=== PATIENT | female | born 1995 | race Hispanic/Latino ===

== ENCOUNTER 2023-09-30 13:52 | Emergency (ER) | payer SELFPAY ==
[2023-09-30 13:53] VITALS: BP 145/96; PULSE 101; RESP 16; TEMP 37.2; O2SAT 99
--- NOTE | 2023-09-30 14:46 | EDS_ITS ---
HPI History of Present Illness Chief Complaint: Shortness of Breath Detail of Chief Complaint: Shortness of breath, upper respiratory tract infectious symptoms Informant: patient Limited: language barrier (Medical Officer service was used. Jake Doshi) Onset/Context/Timing Onset: Days (3 days ago) Context: sudden Timing: Continuous and Waxes and wanes Quality: Negative for Dyspnea on exertion, Orthopnea, PND or Wheezing Current Severity: Mild Maximum Severity: Mild Worsened by: Nothing Relieved by: Nothing Associated Symptoms cough, rhinorrhea and sore throat; Negative for post nasal drip, ear pain, fever, subjective, chills, sweats, clear sputum, white sputum or yellow sputum Chest Pain: Positive for None Narrative Narrative: Patient is a 27-year-old woman who presents with upper respiratory tract infectious symptoms. She does complain of pain in her forehead. Nothing makes the pain better or worse. Described as pain. She does have congestion, sore throat cough that is nonproductive. She also complains of myalgias arthralgias. There is no history of PE or DVT. She is on no control pills. She denies leg pain, swelling discoloration. She denies abdominal pain, nausea, vomit or diarrhea. PE Risk Factors: Negative for Cancer, OCP + Smoking + > 35, Prior DVT or PE, Recent immobilization, Recent surgery or Recent travel Prior similar symptoms: Yes Recent Illness/Hospitalization: No PFSH PFSH no medical history Allergy/AdvReac Type Severity Reaction Status Date / Time No Known Allergies Allergy Verified 09/30/23 13:56 no significant family history no surgical history Social History (Updated 09/30/23 @ 14:[address] Barrie August MD) Smoking Status: Never smoker ROS ROS ED Constitutional Constitutional ED: Denies chills, fever(s), sweats or weight loss Eyes Eyes: Denies blurry vision, change in vision or diplopia ENT ENT ED: Reports rhinorrhea and sore throat; Denies ear pain Cardiovascular Cardiovascular: Denies chest pain, orthopnea, palpitations, paroxysmal nocturnal dyspnea or racing heartbeat Respiratory/Chest Respiratory/Chest: Reports cough and dyspnea; Denies dyspnea on exertion, orthopnea, paroxysmal nocturnal dyspnea or sputum Gastrointestinal Gastrointestinal: Denies abdominal pain, constipation, diarrhea, melena, nausea or vomiting Genitourinary Genitourinary ED: Denies dysuria, hematuria or urinary frequency Musculoskeletal Musculoskeletal: Denies arthralgias, back pain, myalgias or neck pain Integumentary Denies rash Neurologic Neurologic: Reports headache(s); Denies paresthesias or weakness Endocrine Endocrinology: Denies cold intolerance or heat intolerance Hematologic/Lymphatic Hematologic/Lymphatic: Denies easy bleeding or easy bruising EXAM Physical Exam Const Vital Signs: 09/30/23 13:53 Temperature 99 F Temperature Source Temporal Pulse Rate 101 H Respiratory Rate 16 Blood Pressure 145/96 H Blood Pressure Mean 112 Pulse Ox 99 Oxygen Delivery Method Room Air Positive well nourished and well developed General Appearance ED: well developed and NAD; Negative for pallor HEENT Reports moist mucous membranes HEENT Narrative: Ears normal. External auditory canal normal. TMs normal. Nares slight clear drainage. Nasal mucosa is boggy and seo consistent with allergies. Posteropharynx out erythema or exudate. Uvula is midline. There is no deviation with protrusion. atraumatic Eyes PERRL and EOMs intact bilaterally General Eye ED: Negative for pale conjunctiva or scleral icterus Neck no lymphadenopathy, supple, no meningeal signs and no JVD Resp normal respiratory effort and clear to auscultation bilaterally Cardio regular rate, regular rhythm, S1 normal heart sound, S2 normal heart sound and no murmurs GI non-tender, non-distended and no masses Auscultation: normoactive bowel sounds Palpation: soft Back/Spine no CVA tenderness Extremity normal to inspection General Extremety ED: Negative for edema or tenderness General Extremity: Negative for edema Neuro oriented x3 and CN's II-XII intact bilaterally Sensorium / Orientation: alert Psych mental status grossly normal Skin no wounds and skin turgor normal General Skin Exam: Negative for jaundice or pallor Lesions: no lesions Rashes: no rashes MDM MDM MDM Narrative Medical decision making narrative: Patient presents with upper respiratory like symptoms. Patient's history and physical not consistent with PE, cardiac disease. Will treat symptomatically since her symptoms started only 3 days ago. Her vitals reveal slight elevated blood pressure and slight tachycardia. She is not tachypneic febrile or hypoxic. In my professional opinion x-rays not indicated since she has no abnormal aspiratory findings which include rales, rhonchi, wheezing, egophony etc. History & Record Review Additional record(s) reviewed:: No prior records Discharge Plan Triage Chief Complaint: Shortness of Breath ED Provider: Barrie August Dx/Rx/DC Orders Clinical Impression: Acute upper respiratory infection, Tachycardia Instructions: ED Bronchitis, No Antibiotic (Adult) Referrals: Clara Thomas [Non-Staff] - 10-14 Days if not better Print Language: Swazi Disposition Disposition: Home, Self Care
[2023-09-30 15:12] VITALS: BP 145/96; PULSE 81; RESP 14; TEMP 37.2; O2SAT 100; O2SAT 99
== END 2023-09-30 15:14 | disposition home or self-care (01) ==
PROVIDERS: Emergency Provider Emergency Medicine; Visit Provider Emergency Medicine
DX: J06.9 Acute upper respiratory infection, unspecified (principal); R00.0 Tachycardia, unspecified
CPT/HCPCS: 99282

== ENCOUNTER 2023-11-16 09:02 | Emergency (ER) | payer SELFPAY ==
[2023-11-16 09:03] VITALS: BP 134/83; PULSE 100; RESP 14; TEMP 36.1; O2SAT 99
[2023-11-16 09:06] VITALS: BMI 33.7
[2023-11-16] MEDS: HYDROcodone Bitartrate/Apap 5/325 Tablet PO (09:40)
--- NOTE | 2023-11-16 09:40 | EDS_ITS ---
HPI History of Present Illness Chief Complaint: Back Detail of Chief Complaint: Right lower back pain getting up out of bed Informant: patient and other (Friend who is with her was uses interpreter and translator.) Onset/Context/Timing Onset: Today Context: Sudden Onset Chronic pain exacerbated by: Any type of movement Injury: other (Getting out of bed and felt the tightness) Timing: Continuous and Waxes and wanes Quality: Dull and Aching Location: Lumbar (Right side) Current Severity: Mild Maximum Severity: Severe Worsened by: improves with Movement, Ambulation, Bending and Lifting Relieved by: Nothing Associated Symptoms Associated Symptoms: Radiation to Right Leg; Negative for Numbness, Tingling, Radiation to Left Leg, Fever, Abdominal Pain, Dysuria, Unable to Ambulate, Unable to Transfer, Urinary Retention, Urinary Incontinence, Constipation or Fecal Incontinence Narrative Narrative: Patient is a 27-year-old Ab0 female who is approximate 4 weeks gestation. She has no local physician or local OB. She has had no OB care. She presents for back pain however she also noted some vaginal bleeding. She does not know her blood type. She denies any pelvic PHYSIOTHERAPY ASSISTANT symptoms. Patient was brought to examination bed by wheelchair. She was able to stand up. She grimaces with movement. She denies bowel bladder dysfunction. She denies foot drop. She does have pain posterior right leg to the popliteal fossa. She denies history of any direct trauma. She is not complaining of any cramping pelvic or abdominal pain. Prior similar symptoms: No Recent Illness/Hospitalization: No PFSH PFSH Medical History (Updated 11/16/23 @ 10:[address] Barrie August MD) Depression Medical History no medical history no medical history Home Medications ?Medication ?Instructions ?Recorded ?Last Taken ?Type hydrocodone-acetaminophen 5-325mg 1 tab PO Q6H PRN PRN Pain 3 days 11/16/23 Unknown Rx 5mg-325mg #10 TABLETS Allergy/AdvReac Type Severity Reaction Status Date / Time No Known Allergies Allergy Verified 11/16/23 09:12 Surgical History no surgical history no surgical history Social History household members: family Smoking Status: Never smoker ROS ROS ED Constitutional Constitutional ED: Denies chills, fever(s), subjective or sweats Gastrointestinal Gastrointestinal: Denies abdominal pain, constipation, nausea or vomiting Genitourinary Genitourinary ED: Reports urinary frequency; Denies dysuria or hematuria Musculoskeletal Musculoskeletal: Reports back pain; Denies arthralgias, myalgias or neck pain Integumentary Denies rash Neurologic Neurologic: Denies paresthesias or weakness Hematologic/Lymphatic Hematologic/Lymphatic: Denies easy bleeding or easy bruising EXAM Physical Exam Const Vital Signs: 11/16/23 09:03 Temperature 97 F L Temperature Source Temporal Pulse Rate 100 Respiratory Rate 14 Blood Pressure 134/83 H Blood Pressure Mean 100 Pulse Ox 99 Oxygen Delivery Method Room Air Positive well nourished and well developed General Appearance ED: well developed; Negative for NAD or pallor HEENT Reports moist mucous membranes HEENT Narrative: SH macrocephalic. Ears normal. Nares patent. Mucosa is moist. Eyes PERRL and EOMs intact bilaterally General Eye ED: Negative for pale conjunctiva or scleral icterus Neck no lymphadenopathy, supple and no JVD Resp normal respiratory effort and clear to auscultation bilaterally Cardio regular rate, regular rhythm, S1 normal heart sound, S2 normal heart sound and no murmurs GI normal to inspection, nondistended, normoactive bowel sounds, soft to palpation, non-tender, non-distended and no masses Back/Spine normal to inspection; Negative for no thoracic nor lumbar tenderness Back/Spine Narrative: Pain right Lumbar region. Straight leg test is negative bilateral. Patient had pain at 5 to 10 degrees on the right side. Negative bowstring sign. EHL intact bilaterally. Normal sensation L3-S1 dermatome. Patellar and ankle reflex are 2+. There is no Babinski sign nor is or any clonus. DP and PT pulse are palpable. Patient has reproducible pain right paralumbar region. Extremity normal to inspection and no clubbing, cyanosis or edema Neuro oriented x3 and no sensory deficits noted Sensorium / Orientation: alert Motor Exam: strength 5/5 throughout Deep Tendon Reflexes: Rt Patellar (L4): 2+, Lt Patellar (L4): 2+, Rt Ankle (S1): 2+ and Lt Ankle (S1): 2+ Deep Tendon Reflexes Back: Rt Patellar (L4): 2+, Lt Patellar (L4): 2+, Rt Ankle (S1): 2+ and Lt Ankle (S1): 2+ Plantar Reflex: Downgoing: bilateral Psych mental status grossly normal Skin no rashes or lesions noted and no wounds General Skin Exam: Negative for jaundice or pallor MDM MDM MDM Narrative Medical decision making narrative: Patient's back pain is consistent with muscular strain/spasm. She received [place] in the emergency department. Because she is with spotting and does not know her blood type ABO Rh was obtained. Will also make referral to OB on-call. Lab Data Attestation: I reviewed the patient's lab results. Labs: Laboratory Results - last 24 hr 11/16/23 09:32 Blood Type AB POSITIVE Treatment and Re-Evaluation Narrative: Patient was discharged with prescription for [place]. [facility]. NSAIDs are contraindicated since she is . And she was referred to Dr. Spears for OB since she has no OB in the area and has had no OB care. Dr. Spears was not contacted since patient does not need emergent/urgent follow-up Discharge Plan Triage Chief Complaint: Back ED Provider: Barrie August Dx/Rx/DC Orders Clinical Impression: Acute lumbar myofascial strain, First trimester , Miscarriage, threatened, early , Elevated blood-pressure reading, without diagnosis of hypertension Instructions: ED Back Sprain/Strain, ED Abdominal Pain, Early Prescriptions: New hydrocodone-acetaminophen 5-325 mg tablet 1 tab PO Q6H PRN PRN (Reason: Pain) 3 Days Qty: 10 0RF Primary Care Provider: Care Physician,No Primary Referrals: Paulette Van MD [Med Staff - Active Staff] - 1-2 Weeks Clara Thomas [Non-Staff] - 1-2 Weeks Care Physician,No Primary [Primary Care Provider] - Activity Restrictions/Additional Instructions: 1. Apply ice to low back 6-10 times a day 2. Take pain medicine as prescribed 3. Return if you are unable to urinate, loss of bowel control or weakness in your lower extremity Print Language: Bahamian Creole Disposition Disposition: Home, Self Care
[2023-11-16 10:39] VITALS: BP 144/84; PULSE 80; RESP 16; TEMP 36.5; O2SAT 99
== END 2023-11-16 10:44 | disposition home or self-care (01) ==
PROVIDERS: Emergency Provider Emergency Medicine; Visit Provider Emergency Medicine
DX: O9A.211 Injury, poisoning and certain other consequences of external causes complicating pregnancy, first trimester (principal); M79.604 Pain in right leg; R03.0 Elevated blood-pressure reading, without diagnosis of hypertension; S39.012A Strain of muscle, fascia and tendon of lower back, initial encounter; O20.0 Threatened abortion; G89.29 Other chronic pain; R10.31 Right lower quadrant pain; Z3A.01 Less than 8 weeks gestation of pregnancy; O99.891 Other specified diseases and conditions complicating pregnancy; R35.0 Frequency of micturition; X58.XXXA Exposure to other specified factors, initial encounter; O99.351 Diseases of the nervous system complicating pregnancy, first trimester
CPT/HCPCS: 86900; 86901; 99282

== ENCOUNTER 2023-12-21 20:48 | Emergency (ER) | payer MEDICAID, SELFPAY ==
[2023-12-21 20:48] VITALS: BP 126/79; PULSE 93; RESP 18; TEMP 36.2; O2SAT 98; BMI 33.5
--- NOTE | 2023-12-21 20:58 | ED.VIS.FEGU ---
HPI <Dr. Abiodun Hammer DO - Last Filed: 12/21/23 23:53> HPI - Female History of Present Illness Chief Complaint: Vag Bld, Preg <CHIRSS Mathias - Last Filed: 12/21/23 21:47> HPI - Female Narrative Narrative: Patient is a 27-year-old female, she is from [facility], she states minimal Congolese however her boyfriend speaks Congolese. Per the boyfriend, the patient is anywhere between 8 to 10 weeks , she does see Josey [employer], and has a appointment on 24 December. 2 hours prior to arrival, patient had significant lower abdominal cramping with some vaginal bleeding. This concerned the patient and she is here for evaluation. Patient is a 2 para 3. She does have 2 live births. PFSH <Dr. Abiodun Hammer DO - Last Filed: 12/21/23 23:53> [facility] Medical History Depression Home Medications ?Medication ?Instructions ?Recorded ?Last Taken ?Type hydrocodone-acetaminophen 5-325mg 1 tab PO Q6H PRN PRN Pain 3 days 11/16/23 Unknown Rx 5mg-325mg #10 TABLETS Allergy/AdvReac Type Severity Reaction Status Date / Time No Known Allergies Allergy Verified 12/21/23 20:49 Social History household members: family Smoking Status: Never smoker ROS <CHRISS Mathias - Last Filed: 12/21/23 21:47> ROS ED ROS Narrative Constitutional: Negative for fever, chills, weight loss, weakness Eyes: Negative for vision loss, vision change, double vision ENT: Negative for any sore throat, ear pain, congestion Cardiovascular: Negative for any chest pain, tightness, palpitations Respiratory: Negative for any cough, sputum production, hemoptysis, dyspnea, dyspnea on exertion, orthopnea Gastrointestinal: Negative for any nausea, vomiting, diarrhea, constipation, blood in stool, blood in vomit. Positive for abdominal pain : Negative for any urinary frequency, dysuria, retention, blood in urine. Positive for vaginal bleeding Muscle skeletal: Negative for any neck pain, back pain Neurological: Negative for any headache, syncope, dizziness Skin: Negative for any rashes, itching, abrasions, lacerations Psychiatric: Negative for any depression, anxiety, stress, suicidal ideation, homicidal ideation Hematologic: Negative for any excessive bruising, easy bleeding EXAM <Dr. Abiodun Hammer, DO - Last Filed: 12/21/23 23:53> Physical Exam Const Vital Signs: 12/21/23 20:48 12/21/23 22:48 Temperature 97.1 F L Temperature Source Temporal Pulse Rate 93 Respiratory Rate 18 18 Blood Pressure 126/79 H Blood Pressure Mean 94 Pulse Ox 98 Oxygen Delivery Method Room Air Room Air <Polo Michele CAMPAIGN MARKETING SPECIALISTRobertC - Last Filed: 12/21/23 21:47> Physical Exam Narrative Exam Narrative: Vital signs reviewed. HEET: Head normocephalic atraumatic, TMs clear bilaterally. Posterior pharynx is clear, moist mucous membranes. Nares clear bilaterally. Neck: Supple with no lymphadenopathy or tenderness. No signs of meningismus. Cardiac: Regular rate and rhythm no murmurs gallops or rubs, equal peripheral pulses bilaterally. Respiratory: Lungs clear to auscultation bilaterally. No chest tenderness. Abdomen: Soft, nontender, nondistended. No abdominal bruit or pulsatile masses. No hepatosplenomegaly Extremities: No peripheral edema, no signs of gross trauma or deformity. Active full range of motion of all extremities. Neuro: Cranial nerves II through XII intact, no focal neurological deficits. Skin: Clean dry and intact with no rash, purpura, petechiae, vesicles or pustules. Backs/flank: No CVA tenderness, no midline spinal tenderness, no deformity. Psych: Normal mood and affect. No SI, HI or acute psychosis. Const Vital Signs: 12/21/23 20:48 12/21/23 22:48 Temperature 97.1 F L Temperature Source Temporal Pulse Rate 93 Respiratory Rate 18 18 Blood Pressure 126/79 H Blood Pressure Mean 94 Pulse Ox 98 Oxygen Delivery Method Room Air Room Air Positive well nourished and well developed General Appearance ED: well developed MDM <Dr. Abiodun Hammer, DO - Last Filed: 12/21/23 23:53> MDM Lab Data Labs: Laboratory Results - last 24 hr 12/21/23 12/21/23 21:14 22:27 WBC 8.7 RBC 3.82 L Hgb 11.3 L Hct 33.7 L MCV 88.2 MCH 29.6 MCHC 33.5 RDW Std Deviation 44.7 H RDW Coeff of Bakari 13.9 Plt Count 255 MPV 9.2 Immature Gran % (Auto) 0.500 Neut % (Auto) 67.1 Lymph % (Auto) 22.9 [place] % (Auto) 7.7 Eos % (Auto) 1.6 Baso % (Auto) 0.2 Absolute Neuts (auto) 5.9 Absolute Lymphs (auto) 2.00 Nucleated RBC % 0 HCG, Quant 74370 H Urine Color Yellow Urine Clarity Cloudy Urine pH 7.0 Ur Specific [place] 1.015 Urine Protein 15 H Urine Glucose (UA) 100 H Urine Ketones Negative Urine Occult Blood 25 H Urine Nitrite Negative Urine Bilirubin Negative Urine Urobilinogen Normal Ur Leukocyte Esterase 25 H Urine RBC 0-5 SEEN Urine WBC 0-5 SEEN Ur Squamous Epith Cells 0-5 SEEN Amorphous Sediment 2+ PHOS Urine Bacteria 0 SEEN Urine Mucus 0 SEEN Blood Type AB POSITIVE Radiography Diagnostic Testing: Clinical Impression(s) from Imaging Studies Obstetrics Ultrasound 12/21/23 21:02 IMPRESSION: Single live intrauterine . 12 weeks by CRL. Overall estimated gestational age 11 weeks 2 days. No convincing acute abnormality. Trace anechoic fluid in the cervix may be trace hemorrhage. Electronically Signed: Felisha Morton MD at 23:49 EDT , Treatment and Re-Evaluation Narrative: Differential diagnosis includes however is not limited to: Dysfunctional uterine bleeding, threatened miscarriage, ectopic , UTI Patient appears to be in no obvious distress, vital signs are stable, patient is nontoxic-appearing. Presenting to the emergency department for lower abdominal pain, vaginal bleeding, concerned because she is 8 to 10 weeks . Patient will receive a workup including a CBC BMP, hCG quantitative as well as blood type. Patient received a transvaginal ultrasound. All radiologic examinations were read, reviewed by the emergency department attending. From these reads, a plan of care will be put in place. Patient seems to be in a position of comfort at this time. Attending note: HISTORY OF PRESENT ILLNESS: 27-year-old female presents with lower abdominal cramping, vaginal bleeding. No she is approximate 8 weeks . She further states REVIEW OF SYSTEMS: Pertinent positives: Vaginal bleeding, abdominal cramping MEDICAL DECISION MAKING: Chief Complaint: Vaginal bleeding, abdominal cramping External records reviewed: Prior imaging reviewed: No recent advanced imaging of the pelvis noted Factors affecting care: none reported Social determinants of health: none History obtained from others: none Consults: none [facility] Narrative: The patient was hemodynamically stable, afebrile and nontoxic-appearing. I considered the following differential diagnosis: Miscarriage, ectopic , threatened miscarriage, We will obtain ultrasound, type and screen, CBC and quantitative hCG Patient was a positive no need for RhoGAM. She is not significantly anemic There is no sign of asymptomatic bacteriuria Ultrasound showed evidence of a live intrauterine approximately 1 weeks 2 days. The patient is likely some from threatened miscarriage. Will give close OB follow-up. No signs of heterotopic ectopic or completed miscarriage at this time. The patient and/or family, caregivers express understanding. The patient and/or family, caregivers agrees with the plan. Shared decision making: I will have a discussion with the patient and or visitors regarding risk/benefits of further testing or admission. They will be made aware of of the risk/benefits inherent in this decision they will be given the opportunity to voice understanding. Total critical care time today provided was at least 0 minutes. This excludes separately billable procedures. Critical care time (if documented) is secondary to the patient having high probability of clinically significant/life threatening deterioration in the patient's condition which required my urgent intervention. This note was generated with [employer] dictation software. It may contain incorrect words, spelling, and punctuation that were not noted in review of the chart prior to signing. <CHRISS Mathias - Last Filed: 12/21/23 21:47> [facility] Lab Data Labs: Laboratory Results - last 24 hr 12/21/23 12/21/23 21:14 22:27 WBC 8.7 RBC 3.82 L Hgb 11.3 L Hct 33.7 L MCV 88.2 MCH 29.6 MCHC 33.5 RDW Std Deviation 44.7 H RDW Coeff of Bakari 13.9 Plt Count 255 MPV 9.2 Immature Gran % (Auto) 0.500 Neut % (Auto) 67.1 Lymph % (Auto) 22.9 [place] % (Auto) 7.7 Eos % (Auto) 1.6 Baso % (Auto) 0.2 Absolute Neuts (auto) 5.9 Absolute Lymphs (auto) 2.00 Nucleated RBC % 0 HCG, Quant 50273 H Urine Color Yellow Urine Clarity Cloudy Urine pH 7.0 Ur Specific [place] 1.015 Urine Protein 15 H Urine Glucose (UA) 100 H Urine Ketones Negative Urine Occult Blood 25 H Urine Nitrite Negative Urine Bilirubin Negative Urine Urobilinogen Normal Ur Leukocyte Esterase 25 H Urine RBC 0-5 SEEN Urine WBC 0-5 SEEN Ur Squamous Epith Cells 0-5 SEEN Amorphous Sediment 2+ PHOS Urine Bacteria 0 SEEN Urine Mucus 0 SEEN Blood Type AB POSITIVE Radiography Diagnostic Testing: Clinical Impression(s) from Imaging Studies Obstetrics Ultrasound 12/21/23 21:02 IMPRESSION: Single live intrauterine . 12 weeks by CRL. Overall estimated gestational age 11 weeks 2 days. No convincing acute abnormality. Trace anechoic fluid in the cervix may be trace hemorrhage. Electronically Signed: Felisha Morton MD at 23:49 EDT , Treatment and Re-Evaluation Narrative: Differential diagnosis includes however is not limited to: Dysfunctional uterine bleeding, threatened miscarriage, ectopic , UTI Patient appears to be in no obvious distress, vital signs are stable, patient is nontoxic-appearing. Presenting to the emergency department for lower abdominal pain, vaginal bleeding, concerned because she is 8 to 10 weeks . Patient will receive a workup including a CBC BMP, hCG quantitative as well as blood type. Patient received a transvaginal ultrasound. All radiologic examinations were read, reviewed by the emergency department attending. From these reads, a plan of care will be put in place. Patient seems to be in a position of comfort at this time. Discharge Plan Triage Chief Complaint: Vag Bld, Preg ED Midlevel Provider: Polo Michele ED Provider: Abiodun Hammer Dx/Rx/DC Orders Prescriptions: No Action hydrocodone-acetaminophen 5-325 mg tablet 1 tab PO Q6H PRN PRN (Reason: Pain) 3 Days Qty: 10 0RF Primary Care Provider: Care Physician,No Primary Referrals: Care Physician,No Primary [Primary Care Provider] - Print Language: Jake Doshi
--- NOTE | 2023-12-21 21:02 | US_ITS ---
EXAM: US , TRANSVAGINAL CLINICAL INDICATION: bleeding/abdominal pain TECHNIQUE: Real-time transvaginal obstetrical ultrasound of the maternal pelvis and a first trimester with image documentation. Transvaginal imaging was used for better evaluation of the fetus and adnexa. COMPARISON: No relevant prior studies available. FINDINGS: UTERUS/CERVIX: Uterus is 13.2 cm x 9.6 cm x 7.2 cm. Trace anechoic fluid in the cervical canal. Intrauterine gestation sac and pole. Mean sac diameter 4.8 cm corresponds to 10 weeks 3 days gestation. 5.6 cm pole corresponds to 12 weeks 0 day gestation. heart rate 161 bpm. OVARIES: Neither is well seen. FREE FLUID: No free fluid. US/Transvaginal w/Preg US IMPRESSION: Single live intrauterine . 12 weeks by CRL. Overall estimated gestational age 11 weeks 2 days. No convincing acute abnormality. Trace anechoic fluid in the cervix may be trace hemorrhage. Electronically Signed: Felisha Morton MD at 23:49 EDT ,
[2023-12-21 21:25] LABS: Absolute Neutrophil Count 5.9 X10^3/uL (2.0-7.7); Basophil# 0.02 X10^3/uL; Basophil% 0.2 % (0-1); Eosinophil# 0.14 X10^3/uL; Eosinophils% 1.6 % (0-5); Hematocrit 33.7 % (37-47); Hemoglobin 11.3 g/dL (12.0-15.0); Lymphocyte % 22.9 % (19-41); Mean Corp Hgb Conc 33.5 g/dL (32-36); Mean Corpuscular Hgb 29.6 pg (27.0-32.0); Mean Corpuscular Volume 88.2 fL (81-99); Mean Platelet Vol. 9.2 fl (6.2-12.0); Monocyte# 0.67 X10^3/uL; Monocyte% 7.7 % (0-10); NRBC Flagged by Analyzer 0 % (0-5); Neutrophil # 5.86 X10^3/uL (2.7-7.7); Neutrophil % 67.1 % (47-70); Platelet Count 255 K/mm3 (150-450); RBC Distribution Width CV 13.9 % (11.6-14.6); RBC Distribution Width SD 44.7 fl (35.1-43.9); Red Blood Count 3.82 M/mm3 (4.2-5.4); White Blood Count 8.7 K/mm3 (4.4-11.0)
[2023-12-21 22:08] LABS: hCG Titer Quant., Serum 52977 mIU/mL (1-3)
[2023-12-21 22:33] LABS: Bacteria 0 SEEN /hpf (None Seen); Mucous, Urine 0 SEEN /hpf (<or=2+)
[2023-12-21 22:35] LABS: Color, Urine Yellow (Yellow); Glucose, Dipstick 100 mg/dl (Normal); Ketone-Dipstick Negative (Negative); Leukocyte Esterase-Dipstick 25 /ul (Negative); Nitrite-Dipstick Negative (Negative); Occult Blood-Urine 25 /ul (Negative); Protein-Dipstick 15 mg/dl (Negative); Specific Gravity, Urine 1.015 (1.002-1.030); Urine Bilirubin Dipstick Negative (Negative); Urine Clarity Cloudy (Clear); Urine Urobilinogen Normal (Normal)
[2023-12-21 22:48] VITALS: RESP 18
[2023-12-21 22:49] LABS: Amorphous Sediment 2+ PHOS; Red Blood Cells-Urine 0-5 SEEN /hpf (0-5); Squamous Epithelial Cells - UA 0-5 SEEN /hpf (5-10); White Blood Cells 0-5 SEEN /hpf (0-5)
[2023-12-22 00:03] VITALS: PULSE 90; RESP 18; TEMP 36.7; O2SAT 98
== END 2023-12-22 00:05 | disposition home or self-care (01) ==
PROVIDERS: Nurse Practitioner; Emergency Provider Emergency Medicine; Visit Provider Emergency Medicine
DX: O20.9 Hemorrhage in early pregnancy, unspecified (principal); Z3A.00 Weeks of gestation of pregnancy not specified
CPT/HCPCS: 76817; 81001; 84702; 85025; 86900; 86901; 99282; J7030; A4216

== ENCOUNTER 2024-01-15 09:38 | Emergency (ER) | payer MEDICAID, SELFPAY ==
[2024-01-15 09:40] VITALS: BP 132/75; PULSE 81; RESP 16; TEMP 37.1; O2SAT 99; BMI 34.1
--- NOTE | 2024-01-15 09:57 | ED.VIS.FALL ---
HPI HPI - Fall History of Present Illness Chief Complaint: Fall Informant: patient and EMS Limited: language barrier (Professional automobile mechanic apprentice service used for communication) Narrative Narrative: 28-year-old female states she is somewhere around 3 months was coming down the steps at home today and tripped and fell down maybe 6 steps. She injured her left waist and low back and having suprapubic abdominal discomfort. She states her last normal menstrual cycle was sometime in October she does not know specifically when. She denies any other injury and has been able to walk since falling. She has had no vaginal bleeding or leakage. No urinary symptoms. Hurts to move but she is able. No head injury, neck pain, nausea or vomiting. She has not felt the baby move since the fall but was feeling it before that. She is established with [facility] but has not seen anybody yet this . [facility] Medical History (Updated 01/15/24 @ 11:[address] Gregorio Ferguson MD) Depression Home Medications ?Medication ?Instructions ?Recorded ?Last Taken ?Type vit no.95-ferrous 1 tab PO DAILY 01/15/24 Unknown History fumarate 28 mg-folic acid 800 mcg tablet () Allergy/AdvReac Type Severity Reaction Status Date / Time No Known Allergies Allergy Verified 01/15/24 09:51 Social History household members: family Smoking Status: Never smoker ROS ROS ED Constitutional Constitutional ED: Denies chills or fever(s) Eyes Eyes: Denies change in vision or diplopia ENT ENT ED: Denies ear pain, epistaxis, facial pain or rhinorrhea Cardiovascular Cardiovascular: Denies chest pain or palpitations Respiratory/Chest Respiratory/Chest: Denies cough or dyspnea Gastrointestinal Gastrointestinal: Reports abdominal pain; Denies diarrhea, melena, nausea or vomiting Genitourinary Genitourinary ED: Denies dysuria or hematuria Musculoskeletal Musculoskeletal: Reports back pain; Denies extremity pain or neck pain Integumentary Denies abscess, Abrasions, laceration or rash Neurologic Neurologic: Denies confusion, headache(s), paresthesias or weakness EXAM Physical Exam Const Vital Signs: 01/15/24 09:40 01/15/24 09:40 01/15/24 11:39 Temperature 98.7 F Temperature Source Oral Pulse Rate 81 76 Respiratory Rate 16 16 Respiratory Effort Normal Non-Labored Respiratory Depth Normal Respiratory Pattern Normal Blood Pressure 132/75 H 134/55 H Blood Pressure Mean 94 81 Pulse Ox 99 98 Oxygen Delivery Method Room Air Room Air 01/15/24 11:46 Temperature 97.9 F Temperature Source Pulse Rate 76 Respiratory Rate 16 Respiratory Effort Respiratory Depth Respiratory Pattern Blood Pressure 134/55 H Blood Pressure Mean 81 Pulse Ox 98 Oxygen Delivery Method Positive well nourished and well developed General Appearance ED: well developed and NAD HEENT Reports nasal mucous membranes and turbinates normal HEENT Narrative: No Cyr sign no raccoon eyes no CSF otorhinorrhea atraumatic Face and Sinus: Negative for facial tenderness Eyes PERRL and EOMs intact bilaterally Visual Acuity: other Other Details: no entrapment or pain with extraocular movements Neck full ROM and supple General: Negative for tenderness Chest Wall inspection of chest normal and palpation of chest normal Chest: symmetrical chest wall rise; Negative for crepitus or tenderness Resp normal respiratory effort and clear to auscultation bilaterally Percussion: other equal BS bilat Cardio no murmurs Rate: regular rate Rhythm: regular rhythm GI normal to inspection, nondistended, normoactive bowel sounds, soft to palpation and non-tender GI Narrative: No reproducible abdominal tenderness/pain. There is some pain bilateral ASIS with applying AP compression at the pelvis, but no instability. Back/Spine normal ROM Back/Spine Narrative: Hurts to sit up but she is able. Cervical Spine: Negative for cervical spine tenderness Thoracic Spine / Upper Back: Negative for thoracic spinal tenderness Lumbar Spine / Lower Back: paraspinal muscle tenderness bilateral (Lumbar); Negative for lumbar spinal tenderness Extremity normal to inspection and full ROM Extremity Narrative: Including both hips, painless range of motion General Extremety ED: Negative for tenderness Neuro oriented x3, CN's II-XII intact bilaterally, moves all extremities, no focal motor deficits and no sensory deficits noted Antonia Coma Scale: document GCS findings Spontaneous Obeys Commands Oriented 15 Sensorium / Orientation: awake and alert Psych mental status grossly normal and thought process normal Skin no wounds Lesions: no lesions Rashes: no rashes MDM MDM MDM Narrative Medical decision making narrative: I did a bedside ultrasound. There is a single live intrauterine with good movement and heart tones are 144, biparietal distance measuring the baby at approximately 14 weeks and 6 days. Reassured the patient. We obtained an ABO/Rh and a urinalysis. There were some soft signs of infection, but without any urinary symptoms right now going to send for culture and hold off on any treatment given the reason that she was here was a fall and injury. With regards to her back and lower abdominal discomfort, I think she is at a very low likelihood of having a bony or organ injury. My suspicion is that she is just bruised, and I recommend avoiding radiography since any radiography of this area will involve ear radiating the baby. The patient is in agreement with this. I reviewed some old labs, it appears that her blood type was already measured and is AB+, so no RhoGAM indicated, and given that she is only 14-15 weeks along, she does not need to be transferred to the OB unit for observation. She does need to follow-up as an outpatient. Discussed all this with her and through the automobile mechanic apprentice, she is feeling better after Tylenol, and she has no questions and is fine with following up as an outpatient. History & Record Review Additional record(s) reviewed:: Prior labs (Blood type) Lab Data Attestation: I reviewed the patient's lab results. Labs: Laboratory Results - last 24 hr 01/15/24 10:40 Urine Color Yellow Urine Clarity Sl. Cloudy Urine pH 7.0 Ur Specific [place] 1.010 Urine Protein Negative Urine Glucose (UA) Normal Urine Ketones Negative Urine Occult Blood 50 H Urine Nitrite Negative Urine Bilirubin Negative Urine Urobilinogen Normal Ur Leukocyte Esterase 100 H Urine RBC 0 SEEN Urine WBC 5-10 SEEN Ur Squamous Epith Cells 0-5 SEEN Urine Bacteria 1+ Urine Mucus 0 SEEN Discharge Plan Triage Chief Complaint: Fall ED Provider: Gregorio Ferguson Dx/Rx/DC Orders Clinical Impression: with abdominal wall injury, antepartum, Contusion of lower back Instructions: ED Abd Injury Blunt Benign Prescriptions: No Action PNV cmb#95-ferrous fumarate-FA [] 28 mg iron- 800 mcg tablet 1 tab PO DAILY Primary Care Provider: Care Physician,No Primary Referrals: Paulette Van MD [Med Staff - Active Staff] - As soon as possible (call for appt) Print Language: [place]al[place] Creole Disposition Disposition: Home, Self Care
[2024-01-15 10:46] LABS: Mucous, Urine 0 SEEN /hpf (<or=2+); Red Blood Cells-Urine 0 SEEN /hpf (0-5)
[2024-01-15] MEDS: Acetaminophen 500 MG Tablet 1000 MG PO (10:58)
[2024-01-15 11:27] LABS: Color, Urine Yellow (Yellow); Glucose, Dipstick Normal (Normal); Ketone-Dipstick Negative (Negative); Leukocyte Esterase-Dipstick 100 /ul (Negative); Nitrite-Dipstick Negative (Negative); Occult Blood-Urine 50 /ul (Negative); Protein-Dipstick Negative (Negative); Urine Bilirubin Dipstick Negative (Negative); Urine Clarity Sl. Cloudy (Clear); Urine Urobilinogen Normal (Normal)
[2024-01-15 11:39] VITALS: BP 134/55; PULSE 76; RESP 16; O2SAT 98
[2024-01-15 11:45] LABS: Squamous Epithelial Cells - UA 0-5 SEEN /hpf (5-10); White Blood Cells 5-10 SEEN /hpf (0-5)
[2024-01-15 11:46] VITALS: BP 134/55; PULSE 76; RESP 16; TEMP 36.6; O2SAT 98
[2024-01-15 11:46] LABS: Bacteria 1+ /hpf (None Seen)
== END 2024-01-15 11:53 | disposition home or self-care (01) ==
PROVIDERS: Emergency Provider Emergency Medicine; Visit Provider Emergency Medicine
DX: O9A.212 Injury, poisoning and certain other consequences of external causes complicating pregnancy, second trimester (principal); S20.229A Contusion of unspecified back wall of thorax, initial encounter; S39.91XA Unspecified injury of abdomen, initial encounter; W19.XXXA Unspecified fall, initial encounter; Z3A.00 Weeks of gestation of pregnancy not specified
CPT/HCPCS: 81001; 87086; 87088; 99282

== ENCOUNTER 2024-06-11 10:30 | Outpatient (CLI) | payer MEDICAID, SELFPAY ==
[2024-06-11] VITALS (12 sets, daily range): BP systolic 115–135; BP diastolic 55–77; PULSE 85–203; RESP 14; TEMP 36.9; O2SAT 98–100; BMI 40.2
[2024-06-11] MEDS: Lactated Ringers 1,000 ML 999 ML IV (12:00)
[2024-06-11 12:05] LABS: Bedside Glucose 96 mg/dL (74-106)
[2024-06-11 12:25] LABS: Absolute Lymphocyte Count 1.32 X10^3/uL (0.83-4.51); Absolute Neutrophil Count 6.2 X10^3/uL (2.0-7.7); Basophil# 0.02 X10^3/uL; Basophil% 0.2 % (0-1); Eosinophil# 0.12 X10^3/uL; Eosinophils% 1.4 % (0-5); Hematocrit 27.7 % (37-47); Lymphocyte # 1.32 X10^3/ul (0.83-4.51); Lymphocyte % 15.4 % (19-41); Mean Corp Hgb Conc 32.5 g/dL (32-36); Mean Corpuscular Hgb 26.9 pg (27.0-32.0); Mean Corpuscular Volume 82.7 fL (81-99); Mean Platelet Vol. 9.4 fl (6.2-12.0); Monocyte# 0.82 X10^3/uL; Monocyte% 9.5 % (0-10); NRBC Flagged by Analyzer 0 % (0-5); Neutrophil # 6.21 X10^3/uL (2.7-7.7); Neutrophil % 72.3 % (47-70); Platelet Count 192 K/mm3 (150-450); RBC Distribution Width CV 15.9 % (11.6-14.6); RBC Distribution Width SD 47.9 fl (35.1-43.9); Red Blood Count 3.35 M/mm3 (4.2-5.4); White Blood Count 8.6 K/mm3 (4.4-11.0)
[2024-06-11 12:37] LABS: International Normalized Ratio 1.1; Prothrombin Time (Protime)PT. 14.3 SECONDS (11.7-14.9)
[2024-06-11 12:38] LABS: Partial Thromboplast Time 26.3 Seconds (24.1-36.2)
--- NOTE | 2024-06-11 14:24 | OB.TRI.HP_ITS ---
HPI - General General Date of Admission: 06/11/24 Date of Service: 06/11/24 Chief Complaint: Contractions HPI Narrative ANDREY MORENO, is a 28 F who presents from the office with painful contractions. Has been contractions since 06/07. No bleeding. No LOF. 1+ cm in office and very high station. VTX on US. Previous vaginal delivery x 2 at term. Frequent contractions that improved with IV fluids. Cervix on L&D 2 cm x 3. Pain also much better. US shows no evidence of abruption. Patient comfortable with discharge and close follow up Maternal Data Information Final MANAV: 07/07/24 Gestational age: 36+2 PFSH PFSH Medical History (Updated 06/11/24 @ 17:[address] Paulette Van MD) Depression Home Medications ?Medication ?Instructions ?Recorded ?Last Taken ?Type vit no.95-ferrous 1 tab PO DAILY 01/15/24 Unk nown History fumarate 28 mg-folic acid 800 mcg tablet () Held on 06/11/24. Instructions: refused Allergy/AdvReac Type Severity Reaction Status Date / Time No Known Allergies Allergy Verified 06/11/24 11:03 Social History household members: family Smoking Status: Never smoker History 3 Elective abortions Hx Para 2 Spontaneous abortions Hx # Term Pregnancies Ectopic pregnancies Hx # Pregnancies Multiple births # of living children NST FHR Rate Baby A Baseline: 145 Variability:: Minimal and Moderate Accelerations:: 15 x 15 Decelerations:: None NST Reactive:: Yes FHR Category:: Category I Uterine Activity:: q4 to irregular Assessment & Plan (1) 36 weeks gestation of : (2) contractions: PLAN: Plan Labor precautions reviewed Appointment to be scheduled for F/u
[2024-06-11 14:50] LABS: Fibrinogen 289 mg/dl (203-444)
--- NOTE | 2024-06-11 15:28 | US_ITS ---
PROCEDURE: OB LIMITED (NO BIOMETRICS) REASON FOR EXAM: Rule out abruption. COMPARISON: Transvaginal ultrasound dated 12/21/2023. FINDINGS Number: 1 Position: Cephalic. Placental Position: Posterior GRADE 2 Placental Abnormalities: None. ESTIMATED GESTATIONAL AGE: Baseline: 36 weeks 2 days. ESTIMATED DATE OF DELIVERY: Baseline: 07/07/2024. Cardiac Motion: 150 bpm (average) Amniotic fluid index: 14.8 cm. Maximum vertical pocket: 5.5 cm. US/OB Limited (No Biometrics) IMPRESSION: 1. NO EVIDENCE OF ABRUPTION. 2. POSTERIOR PLACENTA. 3. HEART RATE 150 BPM. Reading Location: [facility]
== END 2024-06-11 17:30 | disposition home or self-care (01) ==
LOC: WPOUT 10:40 → WP 10:40
PROVIDERS: Referring Provider Obstetrics & Gynecology; Visit Provider Obstetrics & Gynecology
DX: O47.03 False labor before 37 completed weeks of gestation, third trimester (principal); Z3A.36 36 weeks gestation of pregnancy
CPT/HCPCS: 96365; 59025; 59050; 76815; 82962; 85025; 85384; 85610; 85730; 86850; 86900; 86901; 99221; G0378

== ENCOUNTER 2024-07-05 12:13 | Observation (INO) | payer MEDICAID, SELFPAY ==
[2024-07-05] VITALS (173 sets, daily range): BP systolic 137–214; BP diastolic 81–113; PULSE 58–120; RESP 15–18; TEMP 36.4–37.3; O2SAT 74–100; BMI 30.3
[2024-07-05] MEDS: Lactated Ringers 1,000 ML 15 ML IV (13:20)
[2024-07-05 13:34] LABS: Hematocrit 33.9 % (37-47); Hemoglobin 10.6 g/dL (12.0-15.0); Mean Corp Hgb Conc 31.3 g/dL (32-36); Mean Corpuscular Hgb 25.6 pg (27.0-32.0); Mean Corpuscular Volume 81.9 fL (81-99); Platelet Count 395 K/mm3 (150-450); RBC Distribution Width CV 18.2 % (11.6-14.6); RBC Distribution Width SD 53.4 fl (35.1-43.9); Red Blood Count 4.14 M/mm3 (4.2-5.4); White Blood Count 6.6 K/mm3 (4.4-11.0)
[2024-07-05] MEDS: Magnesium Sulfate 4gm/100mL 4 GM/100 ML IV.SOLN. IV (13:34)
[2024-07-05] MEDS: Magnesium Sulfate 20 GM/500 ML BAG IV ×2 (13:54→23:38)
--- NOTE | 2024-07-05 14:05 | MDS.RN ---
Dr. Albarran called with report of pt. BP. Will continue protocol with po labetolol.
[2024-07-05 14:14] LABS: Protein, Urine (Random) 15.3 mg/dL (0.0-12.0); Protein:Creat Ratio 262 mg/g CRE (0-200)
[2024-07-05] MEDS: Labetalol 200 MG Tablet PO ×2 (14:17→22:26)
[2024-07-05 14:36] LABS: AST(SGOT) 24 U/L (<=31); Alanine Aminotransfer ALT/SGPT 15 U/L (<=34); Creatinine, Serum 1.04 mg/dL (0.70-1.20); EST Glomerular Filtration Rate 75 (>60); Estimated Creatinine Clearance 88.56 ml/min (50-250); Uric Acid 8.3 mg/dL (2.6-6.0)
--- NOTE | 2024-07-05 19:17 | PCM.HP.OB ---
HPI - General General Date of Service: 07/05/24 HPI Narrative ANDREY MORENO, is a 28 F who presents 2 weeks PP (she delivered via at [facility] on 06/21/23) with incision concerns. Nursing removed steri strips and patient then denied incision concerns. Also she reported a mild headache at presentation but denied vision changes or other concerns. [facility] Medical History (Updated 07/05/24 @ 19:[address] Brigette Albarran MD) Depression Home Medications ?Medication ?Instructions ?Recorded ?Last Taken ?Type vit no.95-ferrous 1 tab PO DAILY 01/15/24 Unknown History fumarate 28 mg-folic acid 800 mcg tablet () Held on 06/11/24. Instructions: refused Allergy/AdvReac Type Severity Reaction Status Date / Time No Known Allergies Allergy Verified 07/05/24 12:46 Surgical History (Updated 07/05/24 @ 16:28 by Dennis Gonzalez) Previous section Social History household members: family Smoking Status: Never smoker History 3 Elective abortions Hx Para 2 Spontaneous abortions Hx # Term Pregnancies Ectopic pregnancies Hx # Pregnancies Multiple births # of living children Vital Signs Vital Signs Vital Signs: 07/05/24 12:44 07/05/24 12:44 07/05/24 12:49 Temperature Temperature Source Pulse Rate 68 64 Respiratory Rate Respiratory Effort Respiratory Depth Respiratory Pattern Blood Pressure Blood Pressure Mean BP Systolic BP Diastolic Blood Pressure Source Blood Pressure Position Blood Pressure Location Pulse Ox 100 Oxygen Delivery Method 07/05/24 12:49 07/05/24 12:54 07/05/24 12:54 Temperature Temperature Source Pulse Rate 67 Respiratory Rate Respiratory Effort Respiratory Depth Respiratory Pattern Blood Pressure Blood Pressure Mean BP Systolic BP Diastolic Blood Pressure Source Blood Pressure Position Blood Pressure Location Pulse Ox 100 100 Oxygen Delivery Method 07/05/24 12:59 07/05/24 12:59 07/05/24 13:02 Temperature Temperature Source Pulse Rate 63 Respiratory Rate Respiratory Effort Respiratory Depth Respiratory Pattern Blood Pressure 188/107 H Blood Pressure Mean BP Systolic 188 BP Diastolic 107 Blood Pressure Source Blood Pressure Position Blood Pressure Location Pulse Ox 100 Oxygen Delivery Method 07/05/24 13:02 07/05/24 13:04 07/05/24 13:04 Temperature Temperature Source Pulse Rate 65 62 Respiratory Rate Respiratory Effort Respiratory Depth Respiratory Pattern Blood Pressure Blood Pressure Mean BP Systolic BP Diastolic Blood Pressure Source Blood Pressure Position Blood Pressure Location Pulse Ox 100 Oxygen Delivery Method 07/05/24 13:05 07/05/24 13:05 07/05/24 13:09 Temperature Temperature Source Pulse Rate 71 62 Respiratory Rate Respiratory Effort Respiratory Depth Respiratory Pattern Blood Pressure 176/106 H Blood Pressure Mean BP Systolic 176 BP Diastolic 106 Blood Pressure Source Blood Pressure Position Blood Pressure Location Pulse Ox Oxygen Delivery Method 07/05/24 13:09 07/05/24 13:14 07/05/24 13:29 Temperature Temperature Source Pulse Rate Respiratory Rate Respiratory Effort Respiratory Depth Respiratory Pattern Blood Pressure 175/113 H Blood Pressure Mean BP Systolic 175 BP Diastolic 113 Blood Pressure Source Blood Pressure Position Blood Pressure Location Pulse Ox 100 79 Oxygen Delivery Method 07/05/24 13:29 07/05/24 13:32 07/05/24 13:32 Temperature Temperature Source Pulse Rate 58 L 120 H Respiratory Rate Respiratory Effort Respiratory Depth Respiratory Pattern Blood Pressure Blood Pressure Mean BP Systolic BP Diastolic Blood Pressure Source Blood Pressure Position Blood Pressure Location Pulse Ox 81 Oxygen Delivery Method 07/05/24 13:34 07/05/24 13:34 07/05/24 13:34 Temperature Temperature Source Pulse Rate 61 63 Respiratory Rate 16 Respiratory Effort Normal Respiratory Depth Normal Respiratory Pattern Normal Blood Pressure 179/113 H Blood Pressure Mean 135 BP Systolic BP Diastolic Blood Pressure Source Monitor Blood Pressure Position Semi-Fowlers Blood Pressure Location Right Arm Pulse Ox 100 100 Oxygen Delivery Method Room Air 07/05/24 13:37 07/05/24 13:37 07/05/24 13:39 Temperature Temperature Source Pulse Rate 64 62 Respiratory Rate Respiratory Effort Respiratory Depth Respiratory Pattern Blood Pressure 179/113 H Blood Pressure Mean BP Systolic 179 BP Diastolic 113 Blood Pressure Source Blood Pressure Position Blood Pressure Location Pulse Ox Oxygen Delivery Method 07/05/24 13:39 07/05/24 13:42 07/05/24 13:42 Temperature Temperature Source Pulse Rate 63 Respiratory Rate Respiratory Effort Respiratory Depth Respiratory Pattern Blood Pressure 162/90 H Blood Pressure Mean BP Systolic 162 BP Diastolic 90 Blood Pressure Source Blood Pressure Position Blood Pressure Location Pulse Ox 100 Oxygen Delivery Method 07/05/24 13:43 07/05/24 13:44 07/05/24 13:44 Temperature Temperature Source Pulse Rate 63 63 Respiratory Rate 18 Respiratory Effort Respiratory Depth Respiratory Pattern Blood Pressure 162/90 H 158/93 H Blood Pressure Mean 114 BP Systolic 158 BP Diastolic 93 Blood Pressure Source Monitor Blood Pressure Position Semi-Fowlers Blood Pressure Location Right Arm Pulse Ox 100 Oxygen Delivery Method Room Air 07/05/24 13:44 07/05/24 13:48 07/05/24 13:49 Temperature Temperature Source Pulse Rate 69 69 Respiratory Rate 16 Respiratory Effort Respiratory Depth Respiratory Pattern Blood Pressure Blood Pressure Mean BP Systolic BP Diastolic Blood Pressure Source Blood Pressure Position Blood Pressure Location Pulse Ox 99 100 Oxygen Delivery Method Room Air 07/05/24 13:49 07/05/24 13:54 07/05/24 13:54 Temperature Temperature Source Pulse Rate 112 H Respiratory Rate Respiratory Effort Respiratory Depth Respiratory Pattern Blood Pressure 150/89 H Blood Pressure Mean BP Systolic 150 BP Diastolic 89 Blood Pressure Source Blood Pressure Position Blood Pressure Location Pulse Ox 100 Oxygen Delivery Method 07/05/24 13:54 07/05/24 13:59 07/05/24 13:59 Temperature Temperature Source Pulse Rate 73 Respiratory Rate Respiratory Effort Respiratory Depth Respiratory Pattern Blood Pressure Blood Pressure Mean BP Systolic BP Diastolic Blood Pressure Source Blood Pressure Position Blood Pressure Location Pulse Ox 100 100 Oxygen Delivery Method 07/05/24 14:00 07/05/24 14:00 07/05/24 14:04 Temperature Temperature Source Pulse Rate 73 71 Respiratory Rate 16 16 Respiratory Effort Respiratory Depth Respiratory Pattern Blood Pressure Blood Pressure Mean BP Systolic BP Diastolic Blood Pressure Source Blood Pressure Position Blood Pressure Location Pulse Ox 100 Oxygen Delivery Method Room Air 07/05/24 14:04 07/05/24 14:09 07/05/24 14:09 Temperature Temperature Source Pulse Rate 74 Respiratory Rate Respiratory Effort Respiratory Depth Respiratory Pattern Blood Pressure Blood Pressure Mean BP Systolic BP Diastolic Blood Pressure Source Blood Pressure Position Blood Pressure Location Pulse Ox 100 99 Oxygen Delivery Method 07/05/24 14:11 07/05/24 14:11 07/05/24 14:11 Temperature Temperature Source Pulse Rate 71 Respiratory Rate 18 Respiratory Effort Respiratory Depth Respiratory Pattern Blood Pressure 146/87 H Blood Pressure Mean BP Systolic 146 BP Diastolic 87 Blood Pressure Source Blood Pressure Position Blood Pressure Location Pulse Ox Oxygen Delivery Method 07/05/24 14:14 07/05/24 14:14 07/05/24 14:15 Temperature Temperature Source Temporal Pulse Rate 65 Respiratory Rate Respiratory Effort Respiratory Depth Respiratory Pattern Blood Pressure Blood Pressure Mean BP Systolic BP Diastolic Blood Pressure Source Blood Pressure Position Blood Pressure Location Pulse Ox 99 Oxygen Delivery Method 07/05/24 14:15 07/05/24 14:19 07/05/24 14:22 Temperature 97.5 F L Temperature Source Temporal Pulse Rate 68 Respiratory Rate 18 18 Respiratory Effort Normal Respiratory Depth Normal Respiratory Pattern Normal Blood Pressure Blood Pressure Mean BP Systolic BP Diastolic Blood Pressure Source Blood Pressure Position Blood Pressure Location Pulse Ox 98 81 Oxygen Delivery Method Room Air 07/05/24 14:24 07/05/24 14:24 07/05/24 14:25 Temperature Temperature Source Pulse Rate 74 Respiratory Rate Respiratory Effort Respiratory Depth Respiratory Pattern Blood Pressure 180/89 H Blood Pressure Mean BP Systolic 180 BP Diastolic 89 Blood Pressure Source Blood Pressure Position Blood Pressure Location Pulse Ox 98 Oxygen Delivery Method 07/05/24 14:25 07/05/24 14:29 07/05/24 14:29 Temperature Temperature Source Pulse Rate 64 71 Respiratory Rate Respiratory Effort Respiratory Depth Respiratory Pattern Blood Pressure Blood Pressure Mean BP Systolic BP Diastolic Blood Pressure Source Blood Pressure Position Blood Pressure Location Pulse Ox 99 Oxygen Delivery Method 07/05/24 14:30 07/05/24 14:31 07/05/24 14:31 Temperature Temperature Source Pulse Rate 78 Respiratory Rate 18 Respiratory Effort Respiratory Depth Respiratory Pattern Blood Pressure 154/85 H Blood Pressure Mean BP Systolic 154 BP Diastolic 85 Blood Pressure Source Blood Pressure Position Blood Pressure Location Pulse Ox Oxygen Delivery Method 07/05/24 14:33 07/05/24 14:33 07/05/24 14:33 Temperature Temperature Source Pulse Rate 67 71 Respiratory Rate 18 Respiratory Effort Respiratory Depth Respiratory Pattern Blood Pressure 154/85 H Blood Pressure Mean 108 BP Systolic BP Diastolic Blood Pressure Source Monitor Blood Pressure Position Semi-Fowlers Blood Pressure Location Left Arm Pulse Ox 91 99 Oxygen Delivery Method Room Air 07/05/24 14:34 07/05/24 14:34 07/05/24 14:39 Temperature Temperature Source Pulse Rate 82 70 Respiratory Rate Respiratory Effort Respiratory Depth Respiratory Pattern Blood Pressure Blood Pressure Mean BP Systolic BP Diastolic Blood Pressure Source Blood Pressure Position Blood Pressure Location Pulse Ox 98 Oxygen Delivery Method 07/05/24 14:39 07/05/24 14:40 07/05/24 14:41 Temperature Temperature Source Pulse Rate 71 Respiratory Rate 18 Respiratory Effort Respiratory Depth Respiratory Pattern Blood Pressure 163/85 H 214/97 H Blood Pressure Mean 111 BP Systolic 214 BP Diastolic 97 Blood Pressure Source Monitor Blood Pressure Position Semi-Fowlers Blood Pressure Location Left Arm Pulse Ox 99 99 Oxygen Delivery Method Room Air 07/05/24 14:41 07/05/24 14:44 07/05/24 14:44 Temperature Temperature Source Pulse Rate 77 71 Respiratory Rate Respiratory Effort Respiratory Depth Respiratory Pattern Blood Pressure 163/85 H Blood Pressure Mean BP Systolic 163 BP Diastolic 85 Blood Pressure Source Blood Pressure Position Blood Pressure Location Pulse Ox Oxygen Delivery Method 07/05/24 14:44 07/05/24 14:49 07/05/24 14:49 Temperature Temperature Source Pulse Rate 74 Respiratory Rate Respiratory Effort Respiratory Depth Respiratory Pattern Blood Pressure Blood Pressure Mean BP Systolic BP Diastolic Blood Pressure Source Blood Pressure Position Blood Pressure Location Pulse Ox 100 99 Oxygen Delivery Method 07/05/24 14:51 07/05/24 14:51 07/05/24 14:54 Temperature Temperature Source Pulse Rate 71 69 Respiratory Rate Respiratory Effort Respiratory Depth Respiratory Pattern Blood Pressure 158/88 H Blood Pressure Mean BP Systolic 158 BP Diastolic 88 Blood Pressure Source Blood Pressure Position Blood Pressure Location Pulse Ox Oxygen Delivery Method 07/05/24 14:54 07/05/24 14:54 07/05/24 14:59 Temperature Temperature Source Pulse Rate 71 74 Respiratory Rate 18 Respiratory Effort Respiratory Depth Respiratory Pattern Blood Pressure 158/88 H Blood Pressure Mean 111 BP Systolic BP Diastolic Blood Pressure Source Monitor Blood Pressure Position Semi-Fowlers Blood Pressure Location Left Arm Pulse Ox 100 99 Oxygen Delivery Method Room Air 07/05/24 14:59 07/05/24 15:00 07/05/24 15:00 Temperature Temperature Source Pulse Rate 73 Respiratory Rate Respiratory Effort Respiratory Depth Respiratory Pattern Blood Pressure 163/92 H Blood Pressure Mean BP Systolic 163 BP Diastolic 92 Blood Pressure Source Blood Pressure Position Blood Pressure Location Pulse Ox 100 Oxygen Delivery Method 07/05/24 15:03 07/05/24 15:03 07/05/24 15:04 Temperature Temperature Source Pulse Rate 72 72 Respiratory Rate Respiratory Effort Respiratory Depth Respiratory Pattern Blood Pressure 171/109 H Blood Pressure Mean BP Systolic 171 BP Diastolic 109 Blood Pressure Source Blood Pressure Position Blood Pressure Location Pulse Ox Oxygen Delivery Method 07/05/24 15:04 07/05/24 15:04 07/05/24 15:05 Temperature Temperature Source Pulse Rate 72 Respiratory Rate 18 Respiratory Effort Respiratory Depth Respiratory Pattern Blood Pressure 157/91 H 157/91 H Blood Pressure Mean 113 BP Systolic 157 BP Diastolic 91 Blood Pressure Source Monitor Blood Pressure Position Semi-Fowlers Blood Pressure Location Left Arm Pulse Ox 100 100 Oxygen Delivery Method Room Air 07/05/24 15:06 07/05/24 15:06 07/05/24 15:09 Temperature Temperature Source Pulse Rate 78 69 Respiratory Rate Respiratory Effort Respiratory Depth Respiratory Pattern Blood Pressure Blood Pressure Mean BP Systolic BP Diastolic Blood Pressure Source Blood Pressure Position Blood Pressure Location Pulse Ox 87 Oxygen Delivery Method 07/05/24 15:09 07/05/24 15:14 07/05/24 15:14 Temperature Temperature Source Pulse Rate 71 Respiratory Rate Respiratory Effort Respiratory Depth Respiratory Pattern Blood Pressure Blood Pressure Mean BP Systolic BP Diastolic Blood Pressure Source Blood Pressure Position Blood Pressure Location Pulse Ox 100 100 Oxygen Delivery Method 07/05/24 15:17 07/05/24 15:17 07/05/24 15:19 Temperature Temperature Source Pulse Rate 66 74 Respiratory Rate Respiratory Effort Respiratory Depth Respiratory Pattern Blood Pressure 160/86 H Blood Pressure Mean BP Systolic 160 BP Diastolic 86 Blood Pressure Source Blood Pressure Position Blood Pressure Location Pulse Ox Oxygen Delivery Method 07/05/24 15:19 07/05/24 15:20 07/05/24 15:24 Temperature Temperature Source Pulse Rate 66 72 Respiratory Rate 18 Respiratory Effort Normal Respiratory Depth Normal Respiratory Pattern Normal Blood Pressure 160/86 H Blood Pressure Mean 110 BP Systolic BP Diastolic Blood Pressure Source Monitor Blood Pressure Position Semi-Fowlers Blood Pressure Location Right Arm Pulse Ox 99 99 Oxygen Delivery Method Room Air 07/05/24 15:24 07/05/24 15:30 07/05/24 15:30 Temperature Temperature Source Pulse Rate 67 Respiratory Rate Respiratory Effort Respiratory Depth Respiratory Pattern Blood Pressure Blood Pressure Mean BP Systolic BP Diastolic Blood Pressure Source Blood Pressure Position Blood Pressure Location Pulse Ox 100 100 Oxygen Delivery Method 07/05/24 15:32 07/05/24 15:32 07/05/24 15:35 Temperature Temperature Source Pulse Rate 69 71 Respiratory Rate Respiratory Effort Respiratory Depth Respiratory Pattern Blood Pressure 151/88 H Blood Pressure Mean BP Systolic 151 BP Diastolic 88 Blood Pressure Source Blood Pressure Position Blood Pressure Location Pulse Ox Oxygen Delivery Method 07/05/24 15:35 07/05/24 15:35 07/05/24 15:35 Temperature Temperature Source Pulse Rate 69 Respiratory Rate Respiratory Effort Respiratory Depth Respiratory Pattern Blood Pressure Blood Pressure Mean BP Systolic BP Diastolic Blood Pressure Source Blood Pressure Position Blood Pressure Location Pulse Ox 100 92 Oxygen Delivery Method 07/05/24 15:35 07/05/24 15:40 07/05/24 15:40 Temperature Temperature Source Pulse Rate 69 60 Respiratory Rate 18 Respiratory Effort Respiratory Depth Respiratory Pattern Blood Pressure 151/88 H Blood Pressure Mean 109 BP Systolic BP Diastolic Blood Pressure Source Monitor Blood Pressure Position Semi-Fowlers Blood Pressure Location Left Arm Pulse Ox 100 74 Oxygen Delivery Method Room Air 07/05/24 15:45 07/05/24 15:45 07/05/24 15:47 Temperature Temperature Source Pulse Rate 72 Respiratory Rate Respiratory Effort Respiratory Depth Respiratory Pattern Blood Pressure 145/81 H Blood Pressure Mean BP Systolic 145 BP Diastolic 81 Blood Pressure Source Blood Pressure Position Blood Pressure Location Pulse Ox 99 Oxygen Delivery Method 07/05/24 15:47 07/05/24 15:48 07/05/24 15:49 Temperature Temperature Source Pulse Rate 72 72 Respiratory Rate 18 18 Respiratory Effort Respiratory Depth Respiratory Pattern Blood Pressure 145/81 H Blood Pressure Mean 102 BP Systolic BP Diastolic Blood Pressure Source Monitor Blood Pressure Position Semi-Fowlers Blood Pressure Location Left Arm Pulse Ox 99 Oxygen Delivery Method Room Air 07/05/24 15:50 07/05/24 15:50 07/05/24 15:55 Temperature Temperature Source Pulse Rate 77 82 Respiratory Rate Respiratory Effort Respiratory Depth Respiratory Pattern Blood Pressure Blood Pressure Mean BP Systolic BP Diastolic Blood Pressure Source Blood Pressure Position Blood Pressure Location Pulse Ox 100 Oxygen Delivery Method 07/05/24 15:55 07/05/24 16:00 07/05/24 16:00 Temperature Temperature Source Pulse Rate 75 Respiratory Rate Respiratory Effort Respiratory Depth Respiratory Pattern Blood Pressure Blood Pressure Mean BP Systolic BP Diastolic Blood Pressure Source Blood Pressure Position Blood Pressure Location Pulse Ox 100 100 Oxygen Delivery Method 07/05/24 16:05 07/05/24 16:05 07/05/24 16:10 Temperature Temperature Source Pulse Rate 68 72 Respiratory Rate Respiratory Effort Respiratory Depth Respiratory Pattern Blood Pressure Blood Pressure Mean BP Systolic BP Diastolic Blood Pressure Source Blood Pressure Position Blood Pressure Location Pulse Ox 99 Oxygen Delivery Method 07/05/24 16:10 07/05/24 16:15 07/05/24 16:15 Temperature Temperature Source Pulse Rate 73 Respiratory Rate Respiratory Effort Respiratory Depth Respiratory Pattern Blood Pressure Blood Pressure Mean BP Systolic BP Diastolic Blood Pressure Source Blood Pressure Position Blood Pressure Location Pulse Ox 100 100 Oxygen Delivery Method 07/05/24 16:20 07/05/24 16:20 07/05/24 16:20 Temperature Temperature Source Pulse Rate 79 75 Respiratory Rate 18 Respiratory Effort Respiratory Depth Respiratory Pattern Blood Pressure 148/82 H Blood Pressure Mean 104 BP Systolic BP Diastolic Blood Pressure Source Monitor Blood Pressure Position Semi-Fowlers Blood Pressure Location Left Arm Pulse Ox 99 99 Oxygen Delivery Method Room Air 07/05/24 16:21 07/05/24 16:21 07/05/24 16:24 Temperature Temperature Source Pulse Rate 75 Respiratory Rate 18 Respiratory Effort Respiratory Depth Respiratory Pattern Blood Pressure 148/82 H Blood Pressure Mean BP Systolic 148 BP Diastolic 82 Blood Pressure Source Blood Pressure Position Blood Pressure Location Pulse Ox Oxygen Delivery Method 07/05/24 16:25 07/05/24 16:25 07/05/24 16:30 Temperature Temperature Source Pulse Rate 74 84 Respiratory Rate Respiratory Effort Respiratory Depth Respiratory Pattern Blood Pressure Blood Pressure Mean BP Systolic BP Diastolic Blood Pressure Source Blood Pressure Position Blood Pressure Location Pulse Ox 100 Oxygen Delivery Method 07/05/24 16:30 07/05/24 16:32 07/05/24 16:32 Temperature Temperature Source Pulse Rate 84 Respiratory Rate Respiratory Effort Respiratory Depth Respiratory Pattern Blood Pressure Blood Pressure Mean BP Systolic BP Diastolic Blood Pressure Source Blood Pressure Position Blood Pressure Location Pulse Ox 100 100 Oxygen Delivery Method 07/05/24 16:34 07/05/24 16:34 07/05/24 16:41 Temperature Temperature Source Pulse Rate 80 77 Respiratory Rate Respiratory Effort Respiratory Depth Respiratory Pattern Blood Pressure Blood Pressure Mean BP Systolic BP Diastolic Blood Pressure Source Blood Pressure Position Blood Pressure Location Pulse Ox 88 Oxygen Delivery Method 07/05/24 16:41 07/05/24 16:46 07/05/24 16:46 Temperature Temperature Source Pulse Rate 73 Respiratory Rate Respiratory Effort Respiratory Depth Respiratory Pattern Blood Pressure Blood Pressure Mean BP Systolic BP Diastolic Blood Pressure Source Blood Pressure Position Blood Pressure Location Pulse Ox 100 100 Oxygen Delivery Method 07/05/24 16:50 07/05/24 16:50 07/05/24 16:51 Temperature 97.5 F L Temperature Source Temporal Temporal Pulse Rate 74 Respiratory Rate 16 Respiratory Effort Normal Respiratory Depth Normal Respiratory Pattern Normal Blood Pressure 137/94 H 137/94 H Blood Pressure Mean 108 BP Systolic 137 BP Diastolic 94 Blood Pressure Source Monitor Blood Pressure Position Semi-Fowlers Blood Pressure Location Left Arm Pulse Ox 98 Oxygen Delivery Method Room Air 07/05/24 16:51 07/05/24 16:51 07/05/24 16:56 Temperature Temperature Source Pulse Rate 74 73 Respiratory Rate Respiratory Effort Respiratory Depth Respiratory Pattern Blood Pressure Blood Pressure Mean BP Systolic BP Diastolic Blood Pressure Source Blood Pressure Position Blood Pressure Location Pulse Ox 98 Oxygen Delivery Method 07/05/24 16:56 07/05/24 17:01 07/05/24 17:01 Temperature Temperature Source Pulse Rate 69 Respiratory Rate Respiratory Effort Respiratory Depth Respiratory Pattern Blood Pressure Blood Pressure Mean BP Systolic BP Diastolic Blood Pressure Source Blood Pressure Position Blood Pressure Location Pulse Ox 100 100 Oxygen Delivery Method 07/05/24 17:06 07/05/24 17:06 07/05/24 17:11 Temperature Temperature Source Pulse Rate 74 71 Respiratory Rate Respiratory Effort Respiratory Depth Respiratory Pattern Blood Pressure Blood Pressure Mean BP Systolic BP Diastolic Blood Pressure Source Blood Pressure Position Blood Pressure Location Pulse Ox 100 Oxygen Delivery Method 07/05/24 17:11 07/05/24 17:16 07/05/24 17:16 Temperature Temperature Source Pulse Rate 70 Respiratory Rate Respiratory Effort Respiratory Depth Respiratory Pattern Blood Pressure Blood Pressure Mean BP Systolic BP Diastolic Blood Pressure Source Blood Pressure Position Blood Pressure Location Pulse Ox 100 99 Oxygen Delivery Method 07/05/24 17:21 07/05/24 17:21 07/05/24 17:26 Temperature Temperature Source Pulse Rate 69 68 Respiratory Rate Respiratory Effort Respiratory Depth Respiratory Pattern Blood Pressure Blood Pressure Mean BP Systolic BP Diastolic Blood Pressure Source Blood Pressure Position Blood Pressure Location Pulse Ox 99 Oxygen Delivery Method 07/05/24 17:26 07/05/24 17:31 07/05/24 17:31 Temperature Temperature Source Pulse Rate 69 Respiratory Rate Respiratory Effort Respiratory Depth Respiratory Pattern Blood Pressure Blood Pressure Mean BP Systolic BP Diastolic Blood Pressure Source Blood Pressure Position Blood Pressure Location Pulse Ox 99 98 Oxygen Delivery Method 07/05/24 17:36 07/05/24 17:36 07/05/24 17:41 Temperature Temperature Source Pulse Rate 69 72 Respiratory Rate Respiratory Effort Respiratory Depth Respiratory Pattern Blood Pressure Blood Pressure Mean BP Systolic BP Diastolic Blood Pressure Source Blood Pressure Position Blood Pressure Location Pulse Ox 99 Oxygen Delivery Method 07/05/24 17:41 07/05/24 17:46 07/05/24 17:46 Temperature Temperature Source Pulse Rate 81 Respiratory Rate Respiratory Effort Respiratory Depth Respiratory Pattern Blood Pressure Blood Pressure Mean BP Systolic BP Diastolic Blood Pressure Source Blood Pressure Position Blood Pressure Location Pulse Ox 98 98 Oxygen Delivery Method 07/05/24 17:47 07/05/24 17:47 07/05/24 17:47 Temperature Temperature Source Pulse Rate 73 Respiratory Rate 18 Respiratory Effort Respiratory Depth Respiratory Pattern Blood Pressure 154/91 H Blood Pressure Mean BP Systolic 154 BP Diastolic 91 Blood Pressure Source Blood Pressure Position Blood Pressure Location Pulse Ox Oxygen Delivery Method 07/05/24 17:50 07/05/24 17:51 07/05/24 17:51 Temperature Temperature Source Pulse Rate 73 95 Respiratory Rate 18 Respiratory Effort Respiratory Depth Respiratory Pattern Blood Pressure 154/91 H Blood Pressure Mean 112 BP Systolic BP Diastolic Blood Pressure Source Monitor Blood Pressure Position Semi-Fowlers Blood Pressure Location Left Arm Pulse Ox 98 100 Oxygen Delivery Method Room Air 07/05/24 17:56 07/05/24 17:56 07/05/24 18:02 Temperature Temperature Source Pulse Rate 96 80 Respiratory Rate Respiratory Effort Respiratory Depth Respiratory Pattern Blood Pressure Blood Pressure Mean BP Systolic BP Diastolic Blood Pressure Source Blood Pressure Position Blood Pressure Location Pulse Ox 100 Oxygen Delivery Method 07/05/24 18:02 07/05/24 18:07 07/05/24 18:07 Temperature Temperature Source Pulse Rate 76 Respiratory Rate Respiratory Effort Respiratory Depth Respiratory Pattern Blood Pressure Blood Pressure Mean BP Systolic BP Diastolic Blood Pressure Source Blood Pressure Position Blood Pressure Location Pulse Ox 98 99 Oxygen Delivery Method 07/05/24 18:12 07/05/24 18:12 07/05/24 18:17 Temperature Temperature Source Pulse Rate 77 Respiratory Rate Respiratory Effort Respiratory Depth Respiratory Pattern Blood Pressure Blood Pressure Mean BP Systolic BP Diastolic Blood Pressure Source Blood Pressure Position Blood Pressure Location Pulse Ox 100 99 Oxygen Delivery Method 07/05/24 18:17 07/05/24 18:22 07/05/24 18:22 Temperature Temperature Source Pulse Rate 81 78 Respiratory Rate Respiratory Effort Respiratory Depth Respiratory Pattern Blood Pressure Blood Pressure Mean BP Systolic BP Diastolic Blood Pressure Source Blood Pressure Position Blood Pressure Location Pulse Ox 99 Oxygen Delivery Method 07/05/24 18:27 07/05/24 18:27 07/05/24 18:32 Temperature Temperature Source Pulse Rate 79 81 Respiratory Rate Respiratory Effort Respiratory Depth Respiratory Pattern Blood Pressure Blood Pressure Mean BP Systolic BP Diastolic Blood Pressure Source Blood Pressure Position Blood Pressure Location Pulse Ox 99 Oxygen Delivery Method 07/05/24 18:32 07/05/24 18:37 07/05/24 18:37 Temperature Temperature Source Pulse Rate 80 Respiratory Rate Respiratory Effort Respiratory Depth Respiratory Pattern Blood Pressure Blood Pressure Mean BP Systolic BP Diastolic Blood Pressure Source Blood Pressure Position Blood Pressure Location Pulse Ox 99 98 Oxygen Delivery Method 07/05/24 18:42 07/05/24 18:42 07/05/24 18:47 Temperature Temperature Source Pulse Rate 79 82 Respiratory Rate Respiratory Effort Respiratory Depth Respiratory Pattern Blood Pressure Blood Pressure Mean BP Systolic BP Diastolic Blood Pressure Source Blood Pressure Position Blood Pressure Location Pulse Ox 98 Oxygen Delivery Method 07/05/24 18:47 07/05/24 18:49 07/05/24 18:49 Temperature Temperature Source Pulse Rate 80 Respiratory Rate Respiratory Effort Respiratory Depth Respiratory Pattern Blood Pressure 143/85 H Blood Pressure Mean BP Systolic 143 BP Diastolic 85 Blood Pressure Source Blood Pressure Position Blood Pressure Location Pulse Ox 99 Oxygen Delivery Method 07/05/24 18:50 07/05/24 18:50 07/05/24 18:52 Temperature 99.2 F H Temperature Source Temporal Temporal Pulse Rate 80 83 Respiratory Rate 16 Respiratory Effort Normal Respiratory Depth Normal Respiratory Pattern Normal Blood Pressure 143/85 H Blood Pressure Mean 104 BP Systolic BP Diastolic Blood Pressure Source Arterial Line Blood Pressure Position Blood Pressure Location Left Arm Pulse Ox 99 Oxygen Delivery Method Room Air 07/05/24 18:52 07/05/24 18:57 07/05/24 18:57 Temperature Temperature Source Pulse Rate 83 Respiratory Rate Respiratory Effort Respiratory Depth Respiratory Pattern Blood Pressure Blood Pressure Mean BP Systolic BP Diastolic Blood Pressure Source Blood Pressure Position Blood Pressure Location Pulse Ox 99 99 Oxygen Delivery Method 07/05/24 19:02 07/05/24 19:02 07/05/24 19:07 Temperature Temperature Source Pulse Rate 88 91 Respiratory Rate Respiratory Effort Respiratory Depth Respiratory Pattern Blood Pressure Blood Pressure Mean BP Systolic BP Diastolic Blood Pressure Source Blood Pressure Position Blood Pressure Location Pulse Ox 99 Oxygen Delivery Method 07/05/24 19:07 07/05/24 19:12 07/05/24 19:12 Temperature Temperature Source Pulse Rate 85 Respiratory Rate Respiratory Effort Respiratory Depth Respiratory Pattern Blood Pressure Blood Pressure Mean BP Systolic BP Diastolic Blood Pressure Source Blood Pressure Position Blood Pressure Location Pulse Ox 99 99 Oxygen Delivery Method 07/05/24 19:13 07/05/24 19:13 Temperature Temperature Source Pulse Rate 94 Respiratory Rate Respiratory Effort Respiratory Depth Respiratory Pattern Blood Pressure Blood Pressure Mean BP Systolic BP Diastolic Blood Pressure Source Blood Pressure Position Blood Pressure Location Pulse Ox 93 Oxygen Delivery Method Weight Weight: 187 lb 12.8 oz Body Mass Index (BMI) 30.3 Physical Exam Const alert, oriented x3 and no apparent distress Constitutional Narrative: Patient trying to sleep Chest inspection of chest normal Resp normal respiratory effort GI soft to palpation, non-tender and non-distended GI Narrative: incision - c/d/i Extremity normal to inspection and no calf tenderness Neuro moves all extremities and no focal motor deficits Labs Labs Labs: Blood Type AB POSITIVE Antibody Screen NEGATIVE Hct 33.9 % (37-47) L Hgb 10.6 g/dL (12.0-15.0) L Obstetrics Ultrasound Assessment & Plan (1) Severe pre-eclampsia, : COMMENT: HD#1 PLAN: Plan Admit to L&D. BP's in now mild range after initial severe pressures. Continue labetalol and magnesium sulfate. Per records from [facility] there were no hypertensive issues on admission 2 weeks ago.
[2024-07-05 21:04] LABS: Magnesium 6.5 mg/dL (1.5-2.2)
[2024-07-05] MEDS: Acetaminophen 500 MG Tablet 1000 MG PO (22:02)
[2024-07-05] MEDS: DiphenhydrAMINE 25 MG Capsule PO (22:02)
[2024-07-06] VITALS (132 sets, daily range): BP systolic 116–158; BP diastolic 65–98; PULSE 67–88; RESP 15–17; TEMP 36.2–37.1; O2SAT 91–100
[2024-07-06] MEDS: Labetalol 200 MG Tablet PO ×2 (06:01→13:58)
[2024-07-06] MEDS: Acetaminophen 500 MG Tablet 1000 MG PO ×3 (08:34→22:48)
--- NOTE | 2024-07-06 08:48 | PN.OBGYN_ITS ---
Subjective Subjective Patient doing well this morning. She has a mild headache. No vision changes. No chest pain or trouble breathing. Lochia normal. Pain has been well- controlled. No lower extremity swelling or pain. Objective Data Objective Data Vital Signs: Vital Signs Temp Pulse Resp BP Pulse Ox O2 Del Method 97.6 F L 78 16 132/71 H 99 Room Air 07/06/24 08:35 07/06/24 08:35 07/06/24 08:35 07/06/24 08:35 07/06/24 08:35 07/06/24 08:35 Oxygen Delivery Method Room Air Weight: 187 lb 12.8 oz Body Mass Index (BMI) 30.3 Intake & Output: Intake and Output for Last 24 Hours 07/04/24 07/05/24 07/06/24 23:59 23:59 23:59 Intake Total 1006.67 / 1006.67 200 / 200 Output Total 1175 / 1350 1280 / 1280 Balance -168.33 / -343.33 -1080 / -1080 Lab / Micro Data 07/05/24 13:20 07/05/24 13:20 Labs: Laboratory Results - last 24 hr 07/05/24 13:20: WBC 6.6, RBC 4.14 L, Hgb 10.6 L, Hct 33.9 L, MCV 81.9, MCH 25.6 L, MCHC 31.3 L, RDW Std Deviation 53.4 H, RDW Coeff of Bakari 18.2 H, Plt Count 395, MPV 9.0, Creatinine 1.04, Estim Creat Clear Calc 88.56, Est GFR (MDRD) Non- Af 75, Uric Acid 8.3 H, AST 24, ALT 15, U Random Total Protein 15.3 H, Urine Creatinine 58.30, Protein/Creatinin Ratio 262 H 07/05/24 20:15: Magnesium 6.5 H* Physical Exam Const alert and no apparent distress General Appearance: comfortable HEENT normocephalic Resp normal respiratory effort GI soft to palpation, non-tender and non-distended GI Narrative: Incision c/d/i Extremity normal to inspection and no calf tenderness Assessment & Plan (1) Severe pre-eclampsia, : COMMENT: HD#2 PLAN: BP's well controlled on Labetalol. Tylenol PRN headache. Cont mag gtt for 24 hours. Cont to closely monitor BP's. Possible d/c home tomorrow. (2) Previous section: COMMENT: primary on 06/20/24 PLAN: Routine care. Incision healing well. Pain controlled.
[2024-07-06] MEDS: Magnesium Sulfate 20 GM/500 ML BAG IV (09:49)
--- NOTE | 2024-07-06 16:55 | NURSING ---
This RN has reviewed safe sleep for with mother and father throughout this shift. Mother sleeping intermittently with infant in bed during feeding times and infant found in crib with multiple thick blankets. Risk of suffocation and importance of continued observation of infant expressed to mother, father, and support people. All verbalize understanding.
[2024-07-06] MEDS: Ibuprofen 600 MG Tablet PO (17:35)
[2024-07-06] MEDS: Labetalol 200 MG Tablet 300 MG PO (22:19)
[2024-07-07 04:02] VITALS: BP 126/89; PULSE 69; RESP 16; TEMP 36.7
[2024-07-07 05:54] VITALS: BP 143/95; PULSE 61; RESP 16
[2024-07-07] MEDS: Labetalol 200 MG Tablet 300 MG PO (05:56)
[2024-07-07 08:00] VITALS: BP 139/61; PULSE 71; RESP 16; TEMP 36.8
--- NOTE | 2024-07-07 10:18 | PCM.PN.BLA ---
Progress Note Pain well controlled, average lochia. Denies KATZ or visual changes, no epigastric pain Physical Exam Narrative awake, alert, nad abd- soft, nontender ext- no edema, 2+ DTRs, no clonus Assessment & Plan Assessment/Plan (1) Previous section: (2) Severe pre-eclampsia, : PLAN: HD#3 bp stable s/p magnesium prophylaxis d/w her and partner w/ routing equipment tender IPAD need for close f/u of BP, call or return for severe range BP or symptoms of preeclampsia f/u in office at 930 am on . home on labetalol
--- NOTE | 2024-07-07 10:22 | DS.PCM_ITS ---
Providers Date of Admission: 07/05/24 Date of Discharge: 07/07/24 Primary Care Physician: Tahmina Primary Care Phys Reason For Visit: RULE OUT PRE E Diagnosis Discharge Diagnosis (1) Previous section: Status: Acute Code(s): Z98.891 - History of uterine scar from previous surgery (2) Severe pre-eclampsia, : Status: Acute Code(s): O14.15 - Severe pre-eclampsia, complicating the puerperium Plan: HD#3 bp stable s/p magnesium prophylaxis d/w her and partner w/ co founder and ceo IPAD need for close f/u of BP, call or return for severe range BP or symptoms of preeclampsia f/u in office at 930 am on . home on labetalol Medications at Discharge Home Medications vit no.95-ferrous fumarate 28 mg-folic acid 800 mcg tablet () 1 tab PO DAILY 01/15/24 Held on 06/11/24. Instructions: refused labetalol 300 mg tablet 300 mg PO TID #60 tabs 07/07/24 Hospital Course Operations None Procedures None Summary of Care Provided Minutes Spent on Discharge: 17 Hospital Course: 28-year-old female who had a primary section on 06/20/2024 presented for preeclampsia. She was admitted and given IV antihypertensives and started on magnesium prophylaxis. She remained on magnesium prophylaxis for 24 hours after admission. On hospital day #3, her blood pressures were stable on labetalol. She had no symptoms of severe preeclampsia. She was ready for discharge home she is to continue her vitamins, use [id number] acetaminophen or ibuprofen as needed for pain. She is to follow-up in the office within 72 hours. She is scheduled for 07/09/2024 at 9:30 AM. Patient and partner agree with this plan. Weight / BMI Weight Weight: 85.185 kg Body Mass Index (BMI) 30.3 ABG / Lab / Microbiology Data 07/05/24 13:20 07/05/24 13:20 D/C Instructions Discharge Diet: No restrictions Discharge Activity: May Shower May resume sexual activity in: 4 weeks Cleanse incision/area with: Soap & Water and Keep Dressing Clean & Dry DC O2, CPAP, BIPAP Needs Home O2 Discharge instructions: No Please Follow Up With: Cynthia Owens CNM When: 930 am on 07/09/2024. Arrive by 920 am. Call [phone] if you need to change this appointment. The appointment is at [facility] [address], [place] [id number] Meaningful Use Info Meaningful Use Meaningful Use Diagnoses (Choose all that apply): None applicable Ischemic Stroke Statin Dosing Therapy Reference: STATIN DOSE THERAPY REFERENCE: * Patients > 75 years receive moderate or high dose statin therapy. * Patients 75 years or YOUNGER should receive HIGH intensity statin dose unless contraindicated. You will be required to document reason for non-treatment if statin daily dose does not meet guidelines. HIGH DOSE STATIN THERAPY DAILY Atorvastatin > than or = to 40 mg Rosuvastatin > than or = to 20 mg Amlodipine + Atorvastatin > than or = to 2.5/40 mg Ezetimibe + Simvastatin 10/80 mg Simvastatin 80mg Discharge Plan Admission Reason For Visit: RULE OUT PRE E Attending Provider: Brigette Albarran Primary Care Provider: Care Physician,Tahmina Primary Discharge Orders/Prescriptions Prescriptions: New labetalol 300 mg tablet 300 mg PO TID Qty: 60 0RF No Action PNV cmb#95-ferrous fumarate-FA [] 28 mg iron- 800 mcg tablet 1 tab PO DAILY Referrals / Follow Up: Care Physician,No Primary [Primary Care Provider] - Disposition Patient Disposition: Home, Self Care
== END 2024-07-07 11:00 | disposition home or self-care (01) ==
LOC: WPOUT 12:40 → WP 12:42 → WPOUT 07-07 11:22 → WP 07-07 11:22
PROVIDERS: Admitting Provider Obstetrics & Gynecology; Visit Provider Obstetrics & Gynecology
DX: O14.15 Severe pre-eclampsia, complicating the puerperium (principal); Z98.891 History of uterine scar from previous surgery
CPT/HCPCS: 36415; 82565; 82570; 83735; 84156; 84450; 84460; 84550; 85027; 96365; 96366; 96375; 96376; 99221; G0378

== ENCOUNTER 2025-01-20 13:18 | Emergency (ER) | payer MEDICAID, SELFPAY ==
[2025-01-20 13:25] VITALS: BP 128/88; PULSE 75; RESP 18; TEMP 36.2; O2SAT 100; BMI 32.5
--- NOTE | 2025-01-20 13:45 | CT_ITS ---
PROCEDURE: ABDOMEN/PELVIS WITHOUT CONT 01/20/2025 REASON FOR EXAM: PAIN TECHNIQUE: Procedure Code: CTABDPEL Modality: CT Procedure: ABDOMEN/PELVIS WITHOUT CONT Noncontrast technique limits evaluation of the abdominal and pelvic viscera. Coronal and Sagittal reconstruction series were provided. One or more dose reduction techniques were used (e.g., Automated exposure control, adjustment of the mA and/or kV according to patient size, use of iterative reconstruction technique). FINDINGS: The lung bases are clear. Borderline diastasis recti. Normal caliber abdominal aorta. No suspicious lymphadenopathy. The liver, gallbladder, pancreas, spleen, adrenals, and kidneys are unremarkable. The urinary bladder is unremarkable. Anteverted uterus. Normal caliber large and small bowel. Dense colonic stool suggestive of constipation. CT/Abdomen/Pelvis without Cont IMPRESSION: Borderline diastasis recti. Constipation. Reading Location: [id number]
--- NOTE | 2025-01-20 13:49 | EX.ED.DYSGE1 ---
HPI History of Present Illness Chief Complaint: Abd Pain Narrative Narrative: Chief complaint and HPI: 29-year-old female with past medical history of previous with preeclampsia presents for evaluation of pain in her scar. Onset this morning. States that the pain is across her scar as well as into her back. She denies any fever, chills, nausea, vomiting, diarrhea, constipation, dysuria, urinary frequency, malodorous urine. I did use an official extrusion die repair manager. Review of systems: See HPI Medications: As listed on the chart Allergies: As listed on the chart PFSH: Per chart Vital signs: As listed on the chart. Reviewed. Physical exam: Gen: A&O x3, NAD Head: Normocephalic, atraumatic Eyes: No sclera icterus, conjunctiva clear ENT: Moist mucous membranes CV: RRR, no murmurs Resp: Lungs CTA BL, no w/r/c GI: Abd soft, non-distended, minimal tenderness to palpation over the scar, scar healed well without signs of cellulitis, no r/r/g : No CVA tenderness, mild tenderness to palpation in the bilateral paraspinal musculature of the lumbar spine Musc: Full ROM, no deformity Skin: Warm, dry Neuro: Alert, oriented, grossly intact, sensation intact Psych: Cooperative, appropriate mood and affect [facility] Medical History (Updated 01/20/25 @ 15:[address] Ranjan Tejada, ) Depression Home Medications ?Medication ?Instructions ?Recorded ?Last Taken ?Type vit no.95-ferrous 1 tab PO DAILY 01/15/24 Unknown History fumarate 28 mg-folic acid 800 mcg tablet () Held on 06/11/24. Instructions: refused labetalol 300 mg tablet 300 mg PO TID #60 tabs 07/07/24 Unknown Rx Allergy/AdvReac Type Severity Reaction Status Date / Time No Known Allergies Allergy Verified 01/20/25 13:25 Surgical History Previous section Social History household members: family Smoking Status: Never smoker EXAM Physical Exam Const Vital Signs: 01/20/25 13:25 Temperature 97.2 F L Temperature Source Temporal Pulse Rate 75 Respiratory Rate 18 Blood Pressure 128/88 H Blood Pressure Mean 101 Pulse Ox 100 Oxygen Delivery Method Room Air MDM MDM MDM Narrative Medical decision making narrative: 29-year-old female with past medical history of previous with preeclampsia presents for evaluation of pain in her scar. Onset this morning. States that the pain is across her scar as well as into her back. She denies any fever, chills, nausea, vomiting, diarrhea, constipation, dysuria, urinary frequency, malodorous urine. I did use an official extrusion die repair manager. On presentation, patient no acute distress. Differential diagnosis includes but is not limited to scar tissue pain, myofascial spasm, UTI, , urolithiasis. NS bolus, morphine ordered for symptoms. Laboratory workup ordered including CT abdomen pelvis without contrast. CBC unremarkable. Serum negative. UA negative for UTI but positive for blood. Patient has a history of blood in her urine. BMP unremarkable. CT abdomen pelvis was personally reviewed by myself and I do not see any urolithiasis however waiting for official read by radiology. Patient was updated of the results thus far as well as her . If CT abdomen pelvis is unremarkable, plan will be to discharge home. Follow-up with primary care physician with Tylenol and Motrin as needed for pain. Return back to ED if symptoms change or worsen. Her and her confirmed understanding of the plan. They were informed that we are waiting on the official radiology read prior to discharge. Patient signed out to oncoming physician he will wait for final read. Official extrusion die repair manager was not working during updating the patient on her results and therefore as well as friend over the phone translated. Impression: 1. scar pain 2. History of Lab Data Labs: Laboratory Results - last 24 hr 01/20/25 13:53 WBC 6.7 RBC 4.46 Hgb 13.3 Hct 40.0 MCV 89.7 MCH 29.8 MCHC 33.3 RDW Std Deviation 43.3 RDW Coeff of Bakari 13.2 Plt Count 284 MPV 9.3 Immature Gran % (Auto) 0.300 Neut % (Auto) 48.9 Lymph % (Auto) 37.2 Davidson % (Auto) 9.6 Eos % (Auto) 3.6 Baso % (Auto) 0.4 Absolute Neuts (auto) 3.3 Absolute Lymphs (auto) 2.48 Nucleated RBC % 0 Sodium 140 Potassium 4.1 Chloride 108 Carbon Dioxide 23.1 Anion Gap 9 BUN 12 Creatinine 0.66 L Estim Creat Clear Calc 143.15 Est GFR (MDRD) Non-Af 122 BUN/Creatinine Ratio 18.4 Glucose 80 Calcium 9.2 Serum , Qual NEGATIVE Urine Color Yellow Urine Clarity Sl Cloudy Urine pH 6.0 Ur Specific [place] 1.020 Urine Protein Negative Urine Glucose (UA) Normal Urine Ketones Negative Urine Occult Blood 50 H Urine Nitrite Negative Urine Bilirubin Negative Urine Urobilinogen Normal Ur Leukocyte Esterase 25 H Urine RBC 0-5 SEEN Urine WBC 5-10 SEEN Ur Squamous Epith Cells 5-10 SEEN Urine Bacteria RARE Urine Mucus 0 SEEN Discharge Plan Triage Chief Complaint: Abd Pain ED Provider: Ranjan Tejada Dx/Rx/DC Orders Clinical Impression: Abdominal pain Instructions: ED Abdominal Pain Unkn Cause Fem Prescriptions: No Action PNV no.95-ferrous fumarate-FA [] 28 mg iron- 800 mcg tablet 1 tab PO DAILY labetalol 300 mg tablet 300 mg PO TID Qty: 60 0RF Primary Care Provider: Care Physician,No Primary Referrals: Polo Stone MD [Med Staff - Active Staff, Family Practice] Activity Restrictions/Additional Instructions: Follow-up with primary care physician. If you do not have a primary care physician follow-up with the one listed above. Return back to ED if symptoms change or worsen. Tylenol and ibuprofen as needed for pain. Print Language: [place] Disposition Disposition: Home, Self Care
[2025-01-20 13:59] LABS: Mucous, Urine 0 SEEN /hpf (<or=2+)
[2025-01-20 14:00] LABS: Hematocrit 40.0 % (37-47); Hemoglobin 13.3 g/dL (12.0-15.0); Immature Granulocytes Count 0.020 X10^3/uL (0.0-0.0); Mean Corp Hgb Conc 33.3 g/dL (32-36); Mean Corpuscular Volume 89.7 fL (81-99); Mean Platelet Vol. 9.3 fl (6.2-12.0); NRBC Flagged by Analyzer 0 % (0-5); Platelet Count 284 K/mm3 (150-450); RBC Distribution Width CV 13.2 % (11.6-14.6); RBC Distribution Width SD 43.3 fl (35.1-43.9); Red Blood Count 4.46 M/mm3 (4.2-5.4); White Blood Count 6.7 K/mm3 (4.4-11.0)
[2025-01-20 14:03] LABS: Glucose, Dipstick Normal (Normal); Ketone-Dipstick Negative (Negative); Leukocyte Esterase-Dipstick 25 /ul (Negative); Nitrite-Dipstick Negative (Negative); Occult Blood-Urine 50 /ul (Negative); Protein-Dipstick Negative (Negative); Specific Gravity, Urine 1.020 (1.002-1.030); Urine Bilirubin Dipstick Negative (Negative)
[2025-01-20 14:11] LABS: Internal QC Validated? YES +Cl - CLEAR BKGD; Pregnancy, Serum, hCG Quali. NEGATIVE Negative; Record Kit Lot#, Serum Preg. 0000980607
[2025-01-20 14:16] LABS: Color, Urine Yellow (Yellow)
[2025-01-20 14:21] LABS: Red Blood Cells-Urine 0-5 SEEN /hpf (0-5); Squamous Epithelial Cells - UA 5-10 SEEN /hpf (5-10)
[2025-01-20 14:31] LABS: Anion Gap 9 (5-15); BUN 12 mg/dL (4-19); BUN/Creat Ratio 18.4 RATIO (10-20); Calcium,Total 9.2 mg/dL (7.6-11.0); Carbon Dioxide 23.1 mmol/L (21.0-32.0); Chloride 108 mmol/L (98-108); Estimated Creatinine Clearance 143.15 ml/min (50-250); Glucose 80 mg/dL (70-99); Potassium 4.1 mmol/L (3.3-5.1)
[2025-01-20 15:18] VITALS: PULSE 68; RESP 18; O2SAT 99
[2025-01-20 17:04] VITALS: BP 132/74; PULSE 68; RESP 18; TEMP 36.4; O2SAT 99
== END 2025-01-20 17:05 | disposition home or self-care (01) ==
PROVIDERS: Emergency Provider Surgery; Visit Provider Surgery
DX: O99.893 Other specified diseases and conditions complicating puerperium (principal); R10.9 Unspecified abdominal pain; O99.355 Diseases of the nervous system complicating the puerperium; G89.18 Other acute postprocedural pain; Z87.59 Personal history of other complications of pregnancy, childbirth and the puerperium; Z98.891 History of uterine scar from previous surgery
CPT/HCPCS: 74176; 80048; 81001; 84703; 85025; 96374; 96375; 99282; A4216; J2405